=== PATIENT | female | born 1975 ===

== ENCOUNTER 2019-10-05 02:47 | Emergency (ER) | payer OTHER ==
[~2019-10-05] VITALS: Ht 149.9 cm; Wt 49.1 kg
[2019-10-05 03:38] LABS: APPEARANCE,URINE CLOUDY (CLEAR); GLUCOSE, URINE (UA) NEGATIVE (NEGATIVE); KETONES,URINE 15 mg/dL (NEGATIVE); LEUKOCYTE ESTERASE ,URINE LARGE (NEGATIVE); NITRATE,URINE POSITIVE (NEGATIVE); OCCULT BLOOD,URINE LARGE (NEGATIVE); PROTEIN,URINE SEE CONFIRM (NEGATIVE); UROBILINOGEN,URINE 0.2 mg/dL (<=1.0)
[2019-10-05 03:39] LABS: BILIRUBIN,URINE PRELIM. POSITIVE (NEGATIVE)
[2019-10-05 03:42] LABS: RBC,URINE Full Field /HPF (0-2)
[2019-10-05 03:43] LABS: SQUAMOUS EPITHELIAL CELL,UR Rare /LPF (None Seen); WBC,URINE 51-100 /HPF (0-5)
[2019-10-05 03:44] LABS: BACTERIA,URINE Few /HPF (None Seen); RENAL EPITHELIAL CELLS,URINE Rare /LPF (None Seen); SULFOSALICYLIC ACID,URINE 4+ (Negative)
[2019-10-05] MEDS ORDERED: PHENAZOPYRIDINE HCL 100 MG TABLET PO ONE (04:30)
[2019-10-05] MEDS ORDERED: NITROFURANTOIN/NITROFURAN MAC 100 MG CAPSULE [MACROBID] PO ONE (04:30)
[2019-10-05 04:52] VITALS: BP 124/83
== END 2019-10-05 05:24 | disposition home or self-care (01) ==
LOC: EMS 02:53
DX: N39.0 Urinary tract infection, site not specified (principal)
CPT/HCPCS: 87086